=== PATIENT | female | born 1955 | race Caucasian/White ===

== ENCOUNTER → 2023-12-23 | Outpatient (CLI) | payer MEDICARE, BC ==
[2023-12-23 10:53] VITALS: BP 177/93; PULSE 75; RESP 15; TEMP 98.1
--- NOTE | 2023-12-23 11:09 | P.GSHP ---
History of Present Illness H&P Date: 12/23/23 Chief Complaint: mass right breast Philly is a 68 year old female seen in consultation for Danyelle Lancaster regarding a right breast mass. She had a bilateral mammogram on 09-08-23 which was BIRAD 2. She had a right breast infection in October after the mammogram. It was blotches on her arms and legs also. She was treated with antibiotic, uncertain of which one and the rash left. She however had redness on her right breast and tenderness and swelling in the upper breast. Secondary to the persistent erythema on the right breast and ultrasound was recommended. The patient does not feel any lumps. She had a right breast ultrasound on 11-17-23 which showed a breast implant, and poorly defined echogenic areas in the axilla. This was read as BIRAD 4 and biopsy was recommended. She had a bilateral MRI on 11-22-23 which was BIRAD 2, bilateral implants noted no lesions to recommend biopsy, no evidence of rupture. She had bilateral breast implants in 1980, they were redone in 2012. They are silicone implants. She is not having any problems with the implants. She has not had any other surgeries on her breast. Any other concerns regarding skin changes, nipple discharge, or any trauma or infection in her breast. Note Danyelle Lancaster 11-16-23 reviewed caffiene: 2 cups/day nicotine: none chocolate: occasional BCP: 15 years hormones: none Family history: none patient daughter in-law recently underwent bilateral mastectomy at 39 and is receiveing chemotherapy in [place] Hormonal history: Menarche: 15 , breast fed: no, age at first : 25 menopause: 51 Surgical History: Breast implants, removed and then replaced Medical history:none Social History: Nicotine: Negative Alcohol: Negative Drugs: Negative - Constitutional Constitutional: Reports sweats - EENT Eyes: denies blurred vision, denies pain Ears: deny: decreased hearing, tinnitus Ears, nose, mouth and throat: Denies headache, Denies sore throat - Breasts Breasts: bilateral: as per HPI - Cardiovascular Cardiovascular: Denies chest pain, Denies shortness of breath - Respiratory Respiratory: Denies cough, Denies 7 - Gastrointestinal Gastrointestinal: Denies abdominal pain, Denies diarrhea, Denies nausea, Denies vomiting - Genitourinary (Female) Genitourinary: Denies dysuria, Denies hematuria - Menstruation Menstruation: Reports postmenopausal - Musculoskeletal Musculoskeletal: Denies myalgias - Integumentary Integumentary: Denies pruritus, Denies rash - Neurological Neurological: Denies numbness, Denies weakness - Psychiatric Psychiatric: Denies anxiety, Denies depression - Endocrine Endocrine: Denies fatigue, Denies weight change - Hematologic/Lymphatic Comment: none - Allergic/Immunologic Allergic/Immunologic: Reports as per HPI Medications and Allergies Home Medications Medication Instructions Recorded Confirmed Type No Known Home Medications 12/23/23 12/23/23 History Allergies Allergy/AdvReac Type Severity Reaction Status Date / Time No Known Allergies Allergy Verified 12/23/23 10:33 Surgical - Exam - General no distress - Eyes normal ocular movement - ENT no hearing loss - Neck trachea midline - Respiratory normal respiratory effort - Cardiovascular Rhythm: regular Heart Sounds: normal: S1, S2 - Abdomen Abdomen: soft - Integumentary normal turgor - Neurologic no disoriented, no combative - Musculoskeletal normal gait, normal posture - Psychiatric oriented to time, oriented to person, oriented to place, speech is normal, memory intact Breast Exam: BRA: 40B Inspection: Swelling upper outer aspect of the right breast over the implant, bilateral grade 1 ptosis Palpation: Right breast: Multi positional exam fibroglandular changes, implant in place, well-healed scar from implant placement, in the upper outer aspect of the breast there is some fluctuance with some mild erythema over the area Right axilla: No adenopathy of concern Left breast: Multi positional exam fibroglandular changes, implant in place, well-healed scar from implant placement, no dominant masses or nodules of concern Left axilla: No adenopathy of concern Results Radiographic results reviewed, the radiographs are not with us today Assessment and Plan Assessment: Impression/Plan: Swelling/fluctuance upper outer aspect right breast over the implant Plan to review ultrasound/mammogram/MRI Depending on results of the radiographs ? aspiration the fluctuant area right breast CC: Danyelle Lancaster
== END ==
LOC: WWCWWP 09:32
PROVIDERS: ATTEND Surgery
DX: N63.11 Unspecified lump in the right breast, upper outer quadrant (principal); Z98.82 Breast implant status

== ENCOUNTER → 2023-12-23 | Outpatient (CLI) | payer MEDICARE, BC ==
--- NOTE | 2023-12-23 12:05 | USB ---
Reason for Exam: Clinical finding. Risk Values: Margi 5 year model risk: 1.1%. NCI Lifetime model risk: 3.8%. Technique: Method: Targeted. Findings: The upper outer quadrant of the right breast, the axilla of the right breast and the retroareolar of the right breast were scanned. Targeted ultrasound upper outer quadrant right breast 9:00 to 12:00 including scanning of the subareolar region and axilla. There is underlying breast implant. No solid or cystic lesion or axillary lymphadenopathy. The inhomogeneous echogenicity within the axilla seen on patient's outside ultrasound of 11/17/2023 is not well demonstrated on the current exam. We are made aware that the patient had an interval MRI as well. Please refer to findings on that exam. Short interval follow-up in 3-4 months as a precautionary measure given the patient's palpable finding. Overall Assessment: Probably benign, BI-RAD 3 Management: Diagnostic Breast Ultrasound of the right breast in 4 months. A clinical breast exam by your physician is recommended on an annual basis and results should be correlated with mammographic findings. This exam should not preclude additional follow-up of suspicious palpable abnormalities. Results were given to the patient verbally at the time of exam. Electronically signed and approved by: Swathi Luke M.D. Radiologist
== END | disposition home or self-care (01) ==
LOC: RADUSWWP 11:20
PROVIDERS: ATTEND Surgery
DX: N63.11 Unspecified lump in the right breast, upper outer quadrant (principal); Z98.82 Breast implant status

== ENCOUNTER → 2024-04-24 | Outpatient (CLI) | payer MEDICARE, BC ==
--- NOTE | 2024-04-24 10:22 | USB ---
Reason for Exam: Follow-up at short interval from prior study. Risk Values: Margi 5 year model risk: 1.1%. NCI Lifetime model risk: 3.8%. Technique: Method: Targeted. Findings: The upper outer quadrant of the right breast, the axilla of the right breast and the retroareolar of the right breast were scanned. No solid or cystic masses are identified.. Patient's breast implant is partially visualized within the [id number]. No discrete abnormality to account for patient's palpable abnormality was identified by ultrasound. Clinical management recommended. Overall Assessment: Probably benign, BI-RAD 3 Management: Diagnostic Mammogram of both breasts in 5 months. A clinical breast exam by your physician is recommended on an annual basis and results should be correlated with mammographic findings. This exam should not preclude additional follow-up of suspicious palpable abnormalities. Results were given to the patient verbally at the time of exam. Electronically signed and approved by: Nasim Peñaloza D.O. Radiologis
== END | disposition home or self-care (01) ==
LOC: RADUSWWP 09:30
PROVIDERS: ATTEND Surgery
DX: N63.0 Unspecified lump in unspecified breast (principal)

== ENCOUNTER → 2024-05-08 | Outpatient (CLI) | payer MEDICARE, BC ==
--- NOTE | 2024-05-08 11:31 | P.PN ---
Subjective Progress Note Date: 05/08/24 Principal diagnosis: bilateral implants/firmnes right breast History of Present Illness H&P Date: 05-08-24 Chief Complaint: mass right breast Philly is a 68 year old female seen in consultation for Danyelle Lancaster regarding a right breast mass. She had a bilateral mammogram on 09-08-23 which was BIRAD 2. She had a right breast infection in October after the mammogram. It was blotches on her arms and legs also. She was treated with antibiotic, uncertain of which one and the rash left. She however had redness on her right breast and tenderness and swelling in the upper breast. Secondary to the persistent erythema on the right breast and ultrasound was recommended. The patient does not feel any lumps. She had a right breast ultrasound on 11-17-23 which showed a breast implant, and poorly defined echogenic areas in the axilla. This was read as BIRAD 4 and biopsy was recommended. She had a bilateral MRI on 11-22-23 which was BIRAD 2, bilateral implants noted no lesions to recommend biopsy, no evidence of rupture. She had bilateral breast implants in 1980, they were redone in 2012. They are silicone implants. She is not having any problems with the implants. She has not had any other surgeries on her breast. Any other concerns regarding skin changes, nipple discharge, or any trauma or infection in her breast. The patient's prior mammogram and ultrasound were reviewe with Dr. Luke. Additionally a repeat ultrasound of the area of fluctuance in the right breast was performed. This was also reviewed with Dr. Luke. The area of repeat ultrasound did not show any specific lesions of concern. The MRI report did not show any lesions of concern. Therefore after discussion with the patient we have recommended repeating right breast ultrasound and examination in 4 months, which was done on 04-24-24. This was BIRAD 3 and repeat bilateral mammogram in 5 months recommended. She understands that if anything changes she will see us sooner. 09-08-23 bilateral mammogram Elena reviewed BIRAD 2 11-17-23 right breast ultrasound/ no lesion noted but read as BIRAD 4 recommend biopsy; ultrasound repeated no lesion to biopsy 11-22-23 MRI of breast BIRAD 2 04-24-24 ultrasound of the right breast BIRAD 3, no lesion to biopsy The patient is not complaining of any new lumps masses or nodules of concern in either breast. caffiene: 2 cups/day nicotine: none chocolate: occasional BCP: 15 years hormones: none Family history: none patient daughter in-law recently underwent bilateral mastectomy at 39 and is receiveing chemotherapy in [place] Hormonal history: Menarche: 15 , breast fed: no, age at first : 25 menopause: 51 Surgical History: Breast implants, removed and then replaced Medical history:none Social History: Nicotine: Negative Alcohol: Negative Drugs: Negative - Constitutional Constitutional: Reports sweats - EENT Eyes: denies blurred vision, denies pain Ears: deny: decreased hearing, tinnitus Ears, nose, mouth and throat: Denies headache, Denies sore throat - Breasts Breasts: bilateral: as per HPI - Cardiovascular Cardiovascular: Denies chest pain, Denies shortness of breath - Respiratory Respiratory: Denies cough - Gastrointestinal Gastrointestinal: Denies abdominal pain, Denies diarrhea, Denies nausea, Denies vomiting - Genitourinary (Female) Genitourinary: Denies dysuria, Denies hematuria - Menstruation Menstruation: Reports postmenopausal - Musculoskeletal Musculoskeletal: Denies myalgias - Integumentary Integumentary: Denies pruritus, Denies rash - Neurological Neurological: Denies numbness, Denies weakness - Psychiatric Psychiatric: Denies anxiety, Denies depression - Endocrine Endocrine: Denies fatigue, Denies weight change - Hematologic/Lymphatic Comment: none - Allergic/Immunologic Allergic/Immunologic: Reports as per HPI Medications and Allergies Home Medications Medication Instructions Recorded Confirmed Type No Known Home Medications 12/23/23 12/23/23 History Allergies Allergy/AdvReac Type Severity Reaction Status Date / Time No Known Allergies Allergy Verified 12/23/23 10:33 Objective - Constitutional General appearance: Present: cooperative - EENT Eyes: Present: EOMI ENT: Present: hearing grossly normal - Neck Neck: Present: normal ROM - Respiratory Respiratory: bilateral: CTA - Cardiovascular Rhythm: regular Heart sounds: normal: S1, S2 - Integumentary Integumentary: Present: normal turgor - Musculoskeletal Musculoskeletal: Present: gait normal - Psychiatric Psychiatric: Present: A&O x's 3, appropriate affect, intact judgment & insight - Additional findings Additional findings: Breast Exam: BRA: 40B Inspection: Swelling upper outer aspect of the right breast over the implant decreased, bilateral grade 1 ptosis no change Palpation: Right breast: Multi positional exam fibroglandular changes, implant in place, well-healed scar from implant placement, in the upper outer aspect of the breast there is some decreased fluctuance remains difficult to examine secondary to implant Right axilla: No adenopathy of concern Left breast: Multi positional exam fibroglandular changes, implant in place, well-healed scar from implant placement, no dominant masses or nodules of concern, not as firm as right side Left axilla: No adenopathy of concern Assessment and Plan Assessment: Impression: Fibrocystic breast changes Bilateral breast implants have been in for approximately 40 years the right side appears to have some capsular contraction MRI earlier this year did not show any specific lesions of concern Fullness right breast upper outer quadrant area believed related to the implant, there is nothing discrete on examination nor radiographically to initiate a biopsy Plan: We have discussed removing bilateral implants, the patient is going to discuss this with her will make a decision
[2024-05-08 11:38] VITALS: BP 162/95; PULSE 61; RESP 17; TEMP 97.8
== END ==
LOC: WWCWWP 10:19
PROVIDERS: ATTEND Surgery
DX: N60.11 Diffuse cystic mastopathy of right breast (principal); N60.12 Diffuse cystic mastopathy of left breast; R21 Rash and other nonspecific skin eruption; N63.10 Unspecified lump in the right breast, unspecified quadrant; L53.8 Other specified erythematous conditions; Z98.82 Breast implant status